=== PATIENT | female | born 1990 | race Caucasian/White ===

== ENCOUNTER 2023-04-17 12:31 | Outpatient (CLI) | payer OTHER, SELFPAY ==
[2023-04-17] VITALS (8 sets, daily range): BP systolic 143–155; BP diastolic 88–96; PULSE 89–98; BMI 40.4
--- NOTE | ~2023-04-17 | US_ITS ---
EXAMINATION: US OB follow up w BPP DATE: 04/17/2023 15:47 INDICATION: -induced hypertension. Third trimester. TECHNIQUE: Real-time pelvic ultrasound was performed. COMPARISON: None. FINDINGS: There is a single living fetus in vertex presentation. The placenta is right fundal. heart rat e is 150 beats per minute (bpm). The amniotic fluid index is 16.3 cm, which is normal. The following biometric data were obtained: Biparietal diameter (BPD): 8.8 cm; head circumference (HC): 31.5 cm; abdominal circumference (AC): 30 .9 cm; femur length (FL): 7.0 cm. These measurements are concordant. Estimated weight is 2636 g +/- 395 g, which correlates with the 34th percentile when 05/16/23 is used as estimated date of delivery. As single measurements, these parameters are each equal to the following estimated gestational ages: BPD: 35 weeks 4 days. HC: 35 weeks 2 days. AC: 34 weeks 6 days. FL: 36 weeks 0 days. estimated gestational age based solely on measurements from this exam is 35 weeks 3 days +/- 2 weeks 3 days. Biophysical profile performed by the technologist: breathing (30 sec sustained breathing in 30 minutes): 2 out of 2 movement (3 gross body movements in 30 minutes): 2 out of 2 tone (one episode of qdlfosd-dsobidafe-rmzosls limb movement): 2 out of 2 Amniotic fluid pocket (2 cm): 2 out of 2 Total score: 8 out of 8 IMPRESSION: 1. Single living fetus in vertex presentation. 2. Estimated weight is 2636 g +/- 395 g, which correlates with the 34th percentile when 05/16/23 is used as estimated date of delivery. 3. Biophysical profile 8 out of 8. Reviewed, dictated and finalized at location A. [employer]
[2023-04-17 13:00] LABS: Basophils Absolute Auto 0.1 K/mm3 (0.0-0.1); Basophils Percent Auto 0.4 % (0.2-1.2); Eosinophils Absolute Auto 0.1 K/mm3 (0-0.3); Eosinophils Percent Auto 0.7 % (0-4.4); Hematocrit 35.5 % (37.0-47.0); Hemoglobin 11.7 g/dL (12.0-15.0); Immature Granulocyte Absolute 0.11 K/mm3 (0.00-0.031); Immature Granulocyte Percent A 0.8 % (0-0.5); Lymphocytes Absolute Auto 1.93 K/mm3 (0.9-3.2); Lymphocytes Percent Auto 13.2 % (18.3-44.2); Mean Corpuscular Hemoglobin 28.7 pg (26-34); Mean Platelet Volume 9.7 fl (7.4-10.4); Monocytes Percent Auto 6.9 % (2.6-8.5); Neutrophils Absolute Auto 11.4 K/mm3 (1.3-6.7); Platelet Count Result 354 k/mm3 (150-375); Red Blood Count 4.08 M/mm3 (4.2-5.4); Red Cell Distribution Width 14.3 % (11.5-14.5); White Blood Count 14.6 K/mm3 (4.5-10.0)
[2023-04-17 13:02] LABS: Appearance Urine Clear (Clear); Color Urine Yellow (Yellow); pH Urine 7.5 (5.0-9.0)
[2023-04-17 13:03] LABS: Glucose Urine UA Negative (Negative); Ketones Urine Negative (Negative); Protein Urine Negative (Negative)
[2023-04-17 13:04] LABS: Add Urine Microscopic? YES; Bilirubin Urine Negative (Negative); Blood Urine Trace-Intact (Negative); Leukocyte Esterase Ur 1+ LEU/UL (Negative); Nitrate Urine Negative (Negative); Urobilinogen Urine 0.2 mg/dL (<2.0)
[2023-04-17 13:09] LABS: Alanine Aminotransferase 16 U/L (6-35); Albumin Level 3.4 g/dL (3.5-5.1); Alkaline Phosphatase 97 U/L (38-126); Anion Gap 7 mmol/L (8-16); Aspartate Amino Transferase 19 U/L (14-36); Bilirubin,Total 0.7 mg/dL (0.2-1.3); Blood Urea Nitrogen 7 mg/dL (7-17); Calcium 9.2 mg/dL (8.4-10.2); Carbon Dioxide 21 mmol/L (22-30); Chloride 107 mmol/L (98-107); Estimated CRCL calculation 138 ml/min; Estimated Glomerular Filt Rate > 60; Glucose 83 mg/dL (65-110); Potassium 4.4 mmol/L (3.4-5.0); Sodium 135 mmol/L (137-145); Uric Acid 3.7 mg/dL (2.5-7.5)
[2023-04-17 13:11] LABS: Creatinine Urine 71.5 mg/dL; Total Protein Urine Random 8 mg/dL; Ur Ttl Prot Creatinine Ratio 0.11 mg/mg (0-0.20)
[2023-04-17 13:15] LABS: RBC Urine 0-2 /hpf (0-2); Squamous Epithelial Cell Urine Few /hpf (Few); WBC Urine 0-5 /hpf
--- NOTE | 2023-04-17 14:33 | PC.NURSE ---
Xochitl PITT updated with labs and blood pressures. Pt awaiting ultrasound. tracing reviewed by the CNM at the office. CNM okay with pt being dc from tracing. CNM will prescribe blood pressure medication to seed cone picker tonight.
--- NOTE | 2023-04-17 16:27 | P.PNOB_ITS ---
OB - Triage/Final Diagnosis Visit Information Date of evaluation: 04/17/23 Reason for evaluation: other (r/p Preeclampsia) Comments/Additional reasons for admission: I have assessed the risk for this patient, Lisbet Eason, and determined that she would benefit from observation care. Evaluation Laboratory results: Laboratory Tests 04/17/23 12:44 WBC 14.6 H RBC 4.08 L Hgb 11.7 L Hct 35.5 L MCV 87.0 MCH 28.7 MCHC 33.0 RDW 14.3 Plt Count 354 MPV 9.7 Immature Gran % (Auto) 0.8 H Neut % (Auto) 78.0 H Lymph % (Auto) 13.2 L [place] % (Auto) 6.9 Eos % (Auto) 0.7 Baso % (Auto) 0.4 Lymph # (Auto) 1.93 [place] # (Auto) 1.0 H Eos # (Auto) 0.1 Baso # (Auto) 0.1 Abs Immat Gran (auto) 0.11 H Absolute Neuts (auto) 11.4 H Absolute Nucleated RBC 0.0 Nucleated RBC % 0.0 Sodium 135 L Potassium 4.4 Chloride 107 Carbon Dioxide 21 L Anion Gap 7 L BUN 7 Creatinine 0.60 L Estim Creat Clear Calc 138 Estimated GFR > 60 Glucose 83 Uric Acid 3.7 Calcium 9.2 Total Bilirubin 0.7 AST 19 ALT 16 Alkaline Phosphatase 97 Total Protein 7.0 Albumin 3.4 L Urine Color Yellow Urine Appearance Clear Urine pH 7.5 Ur Specific [place] 1.020 Urine Protein Negative Urine Glucose (UA) Negative Urine Ketones Negative Ur Blood (Man) Trace-intact Urine Nitrate Negative Urine Bilirubin Negative Urine Urobilinogen 0.2 Leukocyte Esterase Rfl 1+ H Urine RBC 0-2 Urine WBC 0-5 Ur Squamous Epith Cells Few U Random Total Protein 8 Urine Creatinine 71.5 Protein/Creat Ratio 2 0.11 Vital signs: Vital Signs - 24 hr 04/17/23 13:00 04/17/23 13:15 04/17/23 13:30 Pulse Rate 90 98 92 Blood Pressure 150/94 H 153/96 H 155/94 H Blood Pressure [Left Arm] 04/17/23 13:45 04/17/23 14:00 04/17/23 14:15 Pulse Rate 98 92 92 Blood Pressure 143/93 H 146/93 H 149/88 H Blood Pressure [Left Arm] 04/17/23 14:30 04/17/23 15:33 Pulse Rate 95 89 Blood Pressure 151/96 H Blood Pressure [Left Arm] 143/93 H Comments: Tracing reactive, US reassuring. Start Labetalol 100mg BID. BP parameters given. to Check BID. 24 hr urine protein collection.
== END 2023-04-17 16:06 | disposition home or self-care (01) ==
LOC: ANHOBOP 12:39 → ANHOBPP 12:39
PROVIDERS: Advanced Practice Midwife; Visit Provider Obstetrics & Gynecology Gynecology
DX: O13.9 Gestational [pregnancy-induced] hypertension without significant proteinuria, unspecified trimester (principal); Z3A.00 Weeks of gestation of pregnancy not specified
CPT/HCPCS: 36415; 59025; 76816; 76819; 80053; 81001; 82570; 84156; 84550; 85025; 99199

== ENCOUNTER 2023-04-18 18:15 | Outpatient (NON) | payer OTHER, SELFPAY ==
[2023-04-18 19:31] LABS: Collection Time Urine 24 HOURS
[2023-04-18 19:35] LABS: Total Volume 24 Hour Urine 2400 ml
[2023-04-18 19:36] LABS: Patient Weight 236 Lbs
[2023-04-18 19:45] LABS: Creatinine Clearance Urine 177.8 ml/min (75-125); Creatinine Urine 77.4 mg/dL; Total Protein Urine 24 Hr 240 mg/24hr (28-141); Total Protein Urine Random 10 mg/dL
== END 2023-04-18 18:16 | disposition home or self-care (01) ==
LOC: ANHOBOP 18:15
PROVIDERS: Visit Provider Advanced Practice Midwife
DX: O26.899 Other specified pregnancy related conditions, unspecified trimester (principal); R03.0 Elevated blood-pressure reading, without diagnosis of hypertension
CPT/HCPCS: 81050; 82575; 84156

== ENCOUNTER 2023-05-19 05:01 | Inpatient (IN) | payer OTHER, MEDICAID, SELFPAY ==
[2023-05-19] VITALS (116 sets, daily range): BP systolic 108–189; BP diastolic 56–114; PULSE 58–106; RESP 18; TEMP 36.2–36.6; O2SAT 95–100; BMI 41.6
--- NOTE | 2023-05-19 05:27 | LDADM ---
This patient, Lisbet Eason, was admitted to Labor/Delivery/Recovery 104 on 05/19/23 at 05:01. Plans for labor, pain management and were discussed with patient. Patient/family oriented to hospital policies and general routines including ID bracelet, bed and alarms, visiting hours, pain management, procedures, bathroom and other care routines, personal items, smoking policy, room service/diet and guest tray routines, security routines, and visiting hours. Patient/Family are encouraged to report perceived risks to care and to ask questions if they do not understand what they are told or what they should do. See OBIX for further documentation.
[2023-05-19 05:50] LABS: Basophils Absolute Auto 0.1 K/mm3 (0.0-0.1); Basophils Percent Auto 0.6 % (0.2-1.2); Eosinophils Absolute Auto 0.1 K/mm3 (0-0.3); Eosinophils Percent Auto 0.8 % (0-4.4); Hematocrit 33.4 % (37.0-47.0); Hemoglobin 10.9 g/dL (12.0-15.0); Immature Granulocyte Absolute 0.12 K/mm3 (0.00-0.031); Lymphocytes Absolute Auto 2.25 K/mm3 (0.9-3.2); Lymphocytes Percent Auto 18.7 % (18.3-44.2); Mean Corpuscular HGB Conc 32.6 g/dl (32-36); Mean Corpuscular Hemoglobin 28.2 pg (26-34); Mean Corpuscular Volume 86.5 fl (80-100); Mean Platelet Volume 10.3 fl (7.4-10.4); Monocytes Percent Auto 8.4 % (2.6-8.5); Neutrophils Absolute Auto 8.5 K/mm3 (1.3-6.7); Neutrophils Percent Auto 70.5 % (45.5-73.1); Platelet Count Result 348 k/mm3 (150-375); Red Blood Count 3.86 M/mm3 (4.2-5.4); Red Cell Distribution Width 14.6 % (11.5-14.5)
[2023-05-19] MEDS: LACTATED RINGERS 1,000 ML 125 ML IV CONT ×2 (06:01→21:58)
[2023-05-19 06:02] LABS: Alanine Aminotransferase 17 U/L (6-35); Albumin Level 3.4 g/dL (3.5-5.1); Alkaline Phosphatase 122 U/L (38-126); Anion Gap 4 mmol/L (8-16); Aspartate Amino Transferase 24 U/L (14-36); Bilirubin,Total 0.5 mg/dL (0.2-1.3); Blood Urea Nitrogen 10 mg/dL (7-17); Calcium 9.9 mg/dL (8.4-10.2); Carbon Dioxide 20 mmol/L (22-30); Chloride 109 mmol/L (98-107); Estimated CRCL calculation 122 ml/min; Estimated Glomerular Filt Rate > 60; Glucose 93 mg/dL (65-110); Potassium 3.7 mmol/L (3.4-5.0); Sodium 133 mmol/L (137-145)
[2023-05-19] MEDS: AMPICILLIN 2 GM/NS 100 ML 2 GM/100 ML BAG IVPB (06:02)
[2023-05-19] MEDS: miSOPROStol 25 MCG TABLET VAGINAL (06:15)
[2023-05-19] MEDS: LABETALOL HCL 100 MG TABLET PO (07:03)
--- NOTE | 2023-05-19 07:38 | PHAR ---
Home medication identified. Labetalol 100mg tablets. Returned to OB1 nursing station
--- NOTE | 2023-05-19 08:21 | PCCCNOTE ---
Care Coordination: Received consult that patient does not have insurance. This is not a care coordination consult. Spoke with Xochitl at [facility] who plans to meet with mom to determine if she is IPA eligible and will provide financial assistance if needed. She will also apply baby for Medicaid. Left message with RN to inform.
--- NOTE | 2023-05-19 08:23 | WPDOBADMIT ---
Obstetrics - Admit Note Admission Note: record reviewed. No pertinent additions to the history and/or any subsequent changes in the physical findings that are not consistent with the expected course of the were found. Additions to the history and/or subsequent changes in the physical findings follow. None.
--- NOTE | 2023-05-19 08:26 | PM.OBPNLAB ---
Pain Control Date/time seen: 05/19/23 0728 Pain control: tolerating well Comments: Pt resting on left side, trying to sleep. Denies feeling regular ctx. Good movement. No headache, visual changes, RUQ pain, or change in edema. Contractions Monitor mode: External Status status: Category l Assessment and Plan Assessment: induction ongoing Comments: Discussed plan of care. Discussed IOL process and expectations. All questions answered. Dr. Grsos updated.
[2023-05-19] MEDS: AMPICILLIN 1 GM/NS 50 ML 1 GM/50 ML BAG IVPB ×4 (10:02→21:56)
[2023-05-19] MEDS: miSOPROStol 25 MCG TABLET 50 MCG VAGINAL (11:19)
[2023-05-19 14:04] LABS: Rapid Plasma Reagin Non-Reactive (NonReactive)
[2023-05-19] MEDS: LABETALOL HCL INJ 100 MG/20 ML VIAL 20 MG IV PUSH ×2 (15:30→20:22)
[2023-05-19] MEDS: OXYTOCIN 30 UNITS/NS 500 ML 30 UNITS/500 ML BAG IV CONT (15:49)
[2023-05-19 16:08] LABS: Creatinine Urine 66.2 mg/dL; Total Protein Urine Random 18 mg/dL; Ur Ttl Prot Creatinine Ratio 0.27 mg/mg (0-0.20)
--- NOTE | 2023-05-19 16:55 | WPDANESEPP ---
Anes - Eval Pre Procedure Procedure: labor epidural Date/Time: 05/19/23 16:55 Pre Op Diagnosis: IOL Patient Data Age: 33 Gender: F Height: 1.63 m Weight: 110 kg Last Vital Signs Temp 36.2 C L 05/19/23 14:59 Pulse 74 05/19/23 16:46 BP 148/79 H 05/19/23 16:46 Pulse Ox 97 05/19/23 07:03 O2 Del Method Room Air 05/19/23 05:42 Allergies Allergy/AdvReac Type Severity Reaction Status Date / Time No Known Allergies Allergy Verified 05/02/23 12:10 Home Medications Medication Instructions Recorded Confirmed Type vits no.126-ferrous fum 1 tablet PO DAILY 04/17/23 05/02/23 History 28 mg iron-folic acid 800 mcg tablet (Classic ) labetalol 100 mg tablet 100 mg PO Q12H 05/02/23 05/02/23 History Laboratory Tests 05/19/23 05/19/23 05:18 15:52 WBC 12.0 H K/mm3 (4.5-10.0) RBC 3.86 L M/mm3 (4.2-5.4) Hgb 10.9 L g/dL (12.0-15.0) Hct 33.4 L % (37.0-47.0) MCV 86.5 fl (80-100) MCH 28.2 pg (26-34) MCHC 32.6 g/dl (32-36) RDW 14.6 H % (11.5-14.5) Plt Count 348 k/mm3 (150-375) MPV 10.3 fl (7.4-10.4) Immature Gran % (Auto) 1.0 H % (0-0.5) Neut % (Auto) 70.5 % (45.5-73.1) Lymph % (Auto) 18.7 % (18.3-44.2) [place] % (Auto) 8.4 % (2.6-8.5) Eos % (Auto) 0.8 % (0-4.4) Baso % (Auto) 0.6 % (0.2-1.2) Lymph # (Auto) 2.25 K/mm3 (0.9-3.2) [place] # (Auto) 1.0 H K/mm3 (0.1-0.6) Eos # (Auto) 0.1 K/mm3 (0-0.3) Baso # (Auto) 0.1 K/mm3 (0.0-0.1) Abs Immat Gran (auto) 0.12 H K/mm3 (0.00-0.031) Absolute Neuts (auto) 8.5 H K/mm3 (1.3-6.7) Absolute Nucleated RBC 0.0 K/mm3 (0.0-0.012) Nucleated RBC % 0.0 % (0.0-0.2) Sodium 133 L mmol/L (137-145) Potassium 3.7 mmol/L (3.4-5.0) Chloride 109 H mmol/L (98-107) Carbon Dioxide 20 L mmol/L (22-30) Anion Gap 4 L mmol/L (8-16) BUN 10 mg/dL (7-17) Creatinine 0.70 mg/dL (0.7-1.0) Estim Creat Clear Calc 122 ml/min Estimated GFR > 60 (59 - ) Glucose 93 mg/dL (65-110) Calcium 9.9 mg/dL (8.4-10.2) Total Bilirubin 0.5 mg/dL (0.2-1.3) AST 24 U/L (14-36) ALT 17 U/L (6-35) Alkaline Phosphatase 122 U/L (38-126) Total Protein 7.0 g/dL (6.3-8.2) Albumin 3.4 L g/dL (3.5-5.1) U Random Total Protein 18 mg/dL Urine Creatinine 66.2 mg/dL Protein/Creat Ratio 2 0.27 H mg/mg (0-0.20) RPR Non-reactive (NonReactive) Blood Type A Positive Antibody Screen Negative Patient hx anesthesia problems: none Family hx anesthesia problems: none Results Review: All pre-operative results and documents have been reviewed as part of the pre-operative evaluation. [facility] Past Medical History Medical History (Updated 05/19/23 @ 16:55 by Ariane Salmeron CRNA) Gestational hypertension Family History Family History Other Unknown family medical history Social History Social History Smoking status: Never smoker Substance use: never Do You Feel Safe in your Home?: Yes Lack of Transportation: No Lack of Food: Never True Current Housing: I Have Housing Concerned About Future Housing: No Difficulty Paying Gas/Electric Bills: No Difficulty Paying for Meds: No Currently Unemployed: No Education: High School Diploma/GED Difficulty w/ Childcare or Family Care: No Spiritual care concerns: No Exam Day of Procedure 05/19/23 16:55 Patient weight: morbidly obese Heart: regular rate and rhythm Lungs: normal air movement Airway: Mallampati scale Neurological: alert and oriented
--- NOTE | 2023-05-19 18:07 | PM.OBPNLAB ---
Pain Control Date/time seen: 05/19/23 18:00 Pain control: tolerating well Comments: Feeling occasional cramping. Denies regular, painful contractions. Pelvic Exam Dilation (cm): 2 Effacement (%): 70 station: -3 Amniotic membrane status: Intact Comments: head applied to cervix. Contractions Monitor mode: External Contraction frequency: 3 (3-5) Contraction duration: 60 (60-90) Contraction pattern: Irregular Contraction phase: Contraction Contraction intensity: Mild Status status: Category l Assessment and Plan Pitocin rate (mU/min): 4 Assessment: induction ongoing Plan: continuous present management Comments: CNM to bedside. BPs continue to be mild after one dose of IV labetalol. Denies KEMP, visual changes, RUQ pain, or increase in edema. Discussed plan of care an option for amniotomy. Discussed risks, benefits, and expectations of breaking water. Patient is agreeable. Amniotomy performed and there was a small return of clear amniotic fluid. Patient tolerated procedure well. Pitocin decreased to 4 ml/hr. Plan to titrate as needed to achieve adequate contraction pattern. Plan SVE in 2 hours. If no cervical change, recommend IUPC placement. Discussed with pt and her partner and she is agreeable if IUPC indicated. Anticipate vaginal . Dr. Gross updated.
--- NOTE | 2023-05-19 18:12 | PM.OBPRVD ---
OB - Vaginal Delivery Note Procedure Delivery date: 05/20/23 Events: Gestational Hypertension and Preeclampsia w/o severe features (Severe BPs during IOL resulting in Preeclampsia diagnosis) Induction method: Per Misoprostol Protocol Delivery augmentation: Rupture of Membranes Delivery monitor: External FHT, External Uterine and Internal Uterine Route of delivery: Episiotomy description: None Laceration Description: Vaginal (1st degree, hemostatic. Tiffanie-urethral/clitoral with repair) Specimen: Yes Quantitative Blood Loss (ml): 500 Anesthesia type: Epidural Disposition: Floor Complications: No immediate complications Narrative: Grecia arrived for induction of labor secondary to gestational hypertension. during her induction, she had a few instances of severe range blood pressures which resolved with labetalol. Due to this, magnesium sulfate was started for preeclampsia. She made cervical change and progressed to complete dilation. She pushed well with contractions. After bringing the head to compete crown he she delivered gradually over an intact perineum. There was fair restitution after this point. There was easy delivery of the anterior followed by the posterior shoulder. After the delivery of the remainder of the , the infant was placed on the maternal abdomen and care was transferred to the nursery staff. After more than 1 minute of life, the cord was doubly clamped and cut. Cord blood, cord segment, and cord gases were obtained. There was spontaneous delivery of the placenta. The vulva and vaginal tissues were inspected. The first-degree vaginal laceration was found to be hemostatic, however the periurethral/ periclitoral laceration needed repair. Dr. Gross called for repair. See MD note. all delivery counts correct, there was excellent fundal tone and hemostasis. 800 mcg of Cytotec was placed rectally for prevention of uterine atony due to long induction and magnesium sulfate infusion. Baby Date of : 05/20/23 Time of : 17:22 Weeks of gestation at delivery: 39 Infant gender: Female Weight (pounds): 8 Weight (ounces): 7 presentation: vertex position: Right Occiput Anterior Placenta delivery description: Spontaneous and Normal Configuration Cord Vessel Description: 3 Vessels and Delayed Cord Clamping score one minute: 8 score five minutes: 9
[2023-05-19] MEDS: MAGNESIUM SULF 4 GM/WATER100ML 4 GM/100 ML BAG IVPB (21:48)
[2023-05-19] MEDS: MAGNESIUM SULF 20GM/WATER500ML 500 ML 50 MG IV CONT (22:26)
[2023-05-20] VITALS (321 sets, daily range): BP systolic 106–184; BP diastolic 60–118; PULSE 57–260; RESP 17–20; TEMP 36.2–37.2; O2SAT 94–100
[2023-05-20] MEDS: AMPICILLIN 1 GM/NS 50 ML 1 GM/50 ML BAG IVPB ×4 (01:59→14:23)
[2023-05-20] MEDS: CALCIUM CARBONATE (TUMS) 500 MG (200 MG ELEMENTAL) 400 MG PO (05:29)
[2023-05-20] MEDS: OXYTOCIN 30 UNITS/NS 500 ML 30 UNITS/500 ML BAG 6 UNITS IV CONT (06:04)
[2023-05-20] MEDS: SODIUM CHLORIDE 0.9% IV 300 ML 600 ML I-UTERINE (08:13)
[2023-05-20] MEDS: MAGNESIUM SULF 20GM/WATER500ML 500 ML 50 MG IV CONT ×2 (08:13→18:16)
--- NOTE | 2023-05-20 08:19 | P.PNOB_ITS ---
Pain Control Date/time seen: 05/20/23 0730 Pain control: tolerating well and epidural Pelvic Exam Dilation (cm): 5 Effacement (%): 90 station: -2 Amniotic membrane status: Ruptured Contractions Monitor mode: Internal Contraction pattern: Irregular Contraction phase: Contraction Contraction intensity: Mild Status status: Category l Assessment and Plan Pitocin rate (mU/min): 14 Assessment: induction ongoing Comments: CNM at bedside from approximately 0730 until 0805. IUPC and ctx evaluated. Copious amount of amniotic fluid on the sheet and carline pad. No strong ctx palpated. IUPC tracing minimal, irregular contractions. Pt having left sided lower back spasm. Assisted RN in repositioning to side lying with leg supported and then on hands and knees with upper body supported on Cub chair. Lower back and left gluteal area massaged and pt reported relief. Assisted her in repos itioning to supine momentarily. IUPC replaced. Then repositioned to left runners position. Plan bolus amount of amnioinfusion in hopes of allowing fetus to rotate. Plan to increase pitocin as needed to achieve adequate contraction pattern. Dr. Gross updated.
[2023-05-20] MEDS: OXYTOCIN 30 UNITS/NS 500 ML 30 UNITS/500 ML BAG IV CONT (09:39)
[2023-05-20] MEDS: PROPRANOLOL HCL 20 MG TABLET PO (09:39)
--- NOTE | 2023-05-20 14:08 | PM.OBPNLAB ---
Pain Control Date/time seen: 05/20/23 0500 phone call Assessment and Plan Comments: CNM received phone call from RN. Pitocin on 30 ml/hr last few hours. Cervix 5cm. Ctx not adequate. OK for pitocin break for one hour. Will restart pitocin at that time at 6ml/hr and increase by 6 ml/hr 30 min later. Afterwards will titrate by 2 ml/hr as needed to achieve adequate contraction pattern.
[2023-05-20] MEDS: LACTATED RINGERS 1,000 ML 125 ML IV CONT (14:24)
[2023-05-20] MEDS: OXYTOCIN 30 UNITS/NS 500 ML 30 UNITS/500 ML BAG 125 UNITS IV CONT (17:43)
[2023-05-20] MEDS: miSOPROStol 200 MCG TABLET 800 MCG RECTAL (17:48)
--- NOTE | 2023-05-20 18:12 | WPDPROCEDUR ---
Procedures Laceration Laceration 2: Site: vulva/vagina Description: linear, irregular and other (gaping) Depth: involves muscle layer Anesthesia technique: nerve block (epidural in place) Pre-repair: deep structures intact Skin layer closed with: vicryl (3-0 for deep layers; 4-0 for skin) Size (cm): 6-0 Technique: running (2 layers) Subcutaneous layer closed with: vicryl Technique: running Muscle layer closed with: vicryl s/p vaginal delivery-see Xochitl Vo note vaginal/vulvar laceration supraurethral and inner labia down to upper vaginal sulcus right side 6 cm x6 cm gaping incision with bulging muscle to clitoral beltran muscle left side 3 cm x 3 cm each side repaired independently in 2 layers urethra not involved, mills in place on my arrival
--- NOTE | 2023-05-20 18:29 | PM.OBDSVD ---
DS: Admitting Diagnosis Discharge Date 05/22/23 Admitting Diagnosis 33 y.o.G1Po gHTN advancing to Preeclampsia Rubella Non-Immune DS: Discharge Diagnosis Discharge Diagnosis (1) (normal spontaneous vaginal delivery): Code(s): O80 - Encounter for full-term uncomplicated delivery Status: Acute (2) Preeclampsia: Qualifiers: Trimester: third trimester Qualified Code(s): O14.93 - Unspecified pre-eclampsia, third trimester Code(s): O14.90 - Unspecified pre-eclampsia, unspecified trimester Status: Acute (3) Mother currently breast-feeding: Code(s): Z39.1 - Encounter for care and examination of lactating mother Status: Acute OB - DS: Summary Hospital Course Hospital Course: Uncomplicated OB Procedures : Ultrasound OB Procedures Intrapartum: Spontaneous Vag Delivery and GBS prophylaxis OB Procedures: : Rubella lg Peripartum Data Delivery Method: Natural Vaginal Laceration Description: Periurethral (johnny-clitoral) and Vaginal (1st degree, hemostatic. Johnny-urethral/clitoral with repair) Episiotomy description: None complications: none Status at Discharge Functional status at discharge: independent ambulation Overall status at discharge: patient is progressing back to baseline Time Spent with Patient Time attestation: Total time spent providing and/or coordinating discharge services: Exam Narrative: Alert and oriented. Mood is pleasant and cooperative. Perineum with minimal edema. Fundus firm and below umbilicus. Const: General: cooperative, healthy appearing, no acute distress and alert Orientation/consciousness: patient oriented x3 Limitations: no limitations Resp: Effort & Inspection: normal respiratory effort and able to speak in complete sentences Auscultation: clear to auscultation bilaterally Cardio: Rate: regular rate GI: Inspection: normal to inspection Auscultation: normal bowel sounds : General: Yes bladder normal to palpation External Female Exam: other (lochia WNL) Bimanual exam- vagina & uterus: bladder normal to palpation Other: Fundus firm and below U Skin: General skin exam: normal color and no rashes or lesions noted Neuro: General: patient oriented x3 and moves all extremities Cognition (Neuro): normal cognition Extrem: General: normal to inspection and no calf tenderness Psych: Appearance: grossly normal Mental Status: mental status grossly normal Affect: normal affect Thought process: Normal thought process present Discharge Plan Discharge Attending physician on discharge: Dipti Gross Discharging Clinician: Xochitl Vo Anticipated Discharge Date/Time: 05/22/23 22:00 Patient Disposition: Home, Self-Care Activity: may shower and pelvic rest Diet: as tolerated and regular Wound Care Instructions: follow printed instructions Discharge Instructions: Continue taking your vitamin and any other supplements as previously directed (Examples: Iron, Vitamin D). You may take Tylenol 1000mg over the counter every 6 hours as needed for pain. Do not exceed 4000mg of Tylenol daily. You may continue using tucks pads and Dermoplast spray if needed for a few more days. Depression Notify provider for signs or symptoms. These may include- Feelings: Feeling anxious, angry, hopeless, guilt, or loss of interest/pleasure in activities you normally enjoy. Mood swings or panic attacks. General: Extreme fatigue, loss of your appetite, feeling restless. Crying excessively, irritability, insomnia Psychological: Lack of concentration, depression or fear, unwanted thoughts Weight: Significant gain or loss Safety: Thoughts of harming yourself or your baby. Blood Pressure Instructions Check your BP at home daily. Keep a log and bring to your next visit. Report any BP readings over 16
--- NOTE | 2023-05-20 18:36 | PM.OBPNLAB ---
Pain Control Date/time seen: 05/19/232129 Assessment and Plan Comments: Discussed recent BP readings with Dr. Gross. Plan to start pitocin due to severe range BPs. Called L&D RN, mag orders given.
[2023-05-20] MEDS: IBUPROFEN 600 MG TABLET PO (19:50)
[2023-05-20] MEDS: LABETALOL HCL 100 MG TABLET PO (20:40)
--- NOTE | 2023-05-20 21:03 | OBPPTRN ---
Patient transferred to post room #283 via wheelchair. Support person Joe present. Oriented to unit, room, information board, rooming in, admission packet and security measures. Patient verbalizes understanding.
[2023-05-21] VITALS (9 sets, daily range): BP systolic 131–150; BP diastolic 73–100; PULSE 80–100; RESP 16–18; TEMP 36.5–37; O2SAT 96–99
--- NOTE | 2023-05-21 00:15 | PC.NURSE ---
Assisted patient with pumping at this time due to baby having blood sugar of 45 mg/dL and needing formula supplementation. Patient pumped for 15 minutes with no output, encouraged patient this is normal and consistent pumping every 2-3 hr is recommended for milk production especially if not putting baby to breast. Patient stated she doesn't wish to pump anymore at this time.
[2023-05-21] MEDS: LABETALOL HCL 100 MG TABLET PO ×2 (02:21→09:10)
--- NOTE | 2023-05-21 02:49 | PC.NURSE ---
Baby girl Jenaro with a blood sugar of 57, mom stated since baby has a blood sugar, can I wait to feed educated patient that since it has been 4 hours since last feed that it is important to try to put baby to breast. Patient stated that she just wants to give a bottle for this feed because baby doesn't seem interested in the breast. Patient was educated on importance of pumping or putting baby to breast if the future plan is to breastfeed. Patient stated After I feed this bottle I will think about pumping . Encouraged patient to call out for help if assistance is needed.
[2023-05-21] MEDS: LACTATED RINGERS 1,000 ML 75 ML IV CONT (03:28)
[2023-05-21] MEDS: MAGNESIUM SULF 20GM/WATER500ML 500 ML 50 MG IV CONT ×2 (03:28→13:47)
[2023-05-21 04:13] LABS: Hemoglobin 9.9 g/dL (12.0-15.0)
[2023-05-21] MEDS: IBUPROFEN 600 MG TABLET PO ×2 (04:15→15:47)
--- NOTE | 2023-05-21 07:01 | P.PNOB_ITS ---
OB - PN: Subj Subjective Date/time seen: 05/21/23 0635 Interval history: Doing well. Cline in place. Denies KEMP, visual changes, or RUQ pain. Denies passing any large clots. Denies dizziness. Not out of bed yet. Tolerating po food and fluids. Bonding with . Patient comments: pain well controlled baby status: doing well feeding status: breast and bottle feeding OB - PN: Obj Data Labs 05/21/23 03:40 05/19/23 05:18 Labs: Laboratory Results - last 24 hr 05/21/23 03:40 Hgb 9.9 L Hct 29.0 L OB - PN A/P Plan day: 1 Plan: routine care Time Spent With Patient Time: Total time spent is greater than 50% in coordination of care (as documented) at patient's floor/unit and/or counseling patient: Review of Systems Review of Systems: All systems reviewed & are unremarkable except as noted in HPI and below Exam Narrative: Alert and oriented. Mood is pleasant and cooperative. Perineum with minimal edema. Fundus firm and below umbilicus. Const: General: cooperative, healthy appearing, no acute distress and alert Orientation/consciousness: patient oriented x3 Limitations: no limitations Resp: Effort & Inspection: normal respiratory effort and able to speak in complete sentences Auscultation: clear to auscultation bilaterally Cardio: Rate: regular rate GI: Inspection: normal to inspection Auscultation: normal bowel sounds : General: Yes bladder normal to palpation External Female Exam: other (lochia WNL. mod edema) Other: Fundus firm and below U. Cline in place Urinary Catheter: Urinary Catheter: patent and draining Skin: General skin exam: normal color and no rashes or lesions noted Neuro: General: patient oriented x3 and moves all extremities Cognition (Ne uro): normal cognition Extrem: General: normal to inspection and no calf tenderness Psych: Appearance: grossly normal Mental Status: mental status grossly normal Affect: normal affect Thought process: Normal thought process present
[2023-05-21] MEDS: MULTIVIT/MIN/PREN/FOL AC/IRON TABLET 1 TAB PO (09:10)
[2023-05-21] MEDS: DOCUSATE SODIUM 100 MG CAPSULE PO ×2 (09:10→16:56)
[2023-05-21] MEDS: POLYSACCHARIDE IRON COMPLEX 150 MG CAPSULE PO ×2 (09:10→16:56)
--- NOTE | 2023-05-21 10:49 | WPDANLDPN2 ---
Anes-Prog Note L&D Date/Time: 05/21/23 10:49 Neuro status: Neuro function grossly intact. Cardiovascular status: normal Respiratory status: normal Airway patency: baseline Mental status: baseline Post-Op hydration status: normal Vital Signs: Last Vital Signs Temp 36.5 C 05/21/23 07:40 Pulse 81 05/21/23 09:10 Resp 18 05/21/23 07:40 BP 146/95 H 05/21/23 07:40 Pulse Ox 98 05/21/23 07:40 O2 Del Method Room Air 05/21/23 07:35 Pain score (VAS): 0 I/O: Intake & Output 05/20/23 05/21/23 05/21/23 23:59 07:59 15:59 Intake Total 1000 Output Total 1490 2100 250 Balance -490 2100 250 Post-procedural complaints: none Patient feedback: Patient satisfied with anesthetic care.
--- NOTE | 2023-05-21 13:31 | PC.NURSE ---
[id number] Encouraged stimulating to check for feeding cues, change the diaper if needed, to call for blood sugar after infant is [id number], and offer the breast when feeding cues are visualized. Instructed patient to call if she has difficulty waking infant, latching infant, pain with latching, no swallowing visualized, and needs assistance. Parents voiced understanding of the information.
--- NOTE | 2023-05-21 13:34 | PC.NURSE ---
Late entry - [id number] Introductions were made, then consulted with patient to assess needs related to . Mother led the conversation with her?plans to feed?her , the?experience so far, and has infant latched to the right breast with football positioning. Infants mouth is 90 degrees, mother denies pain, is swallowing at times with lowering of the jaw and the ka sound, infants cheek is not well rounded. Infant was detached due to non-nutritive sucking and nipple was misshaped. Mother works well with her . Reviewed positioning and ear, shoulder, hip alignment, supporting the breast to facilitate a deep latch, asymmetrical latch (off-center), leading with the chin with a big, open, wide gape and body close to mother. latched optimally to the left breast in football position. Education given to the mother of how to visualize the suckling (with good rocking jaw motion), swallows (dropping of the lower jaw) and how to listen for drinking at the breast (the ka sound). was able to maintain latch without pain to mother protecting the nipple with optimal positioning and latching. Infant effectively for a few minutes, then latch is assessed at less than 90 degrees. is detached with nipple misshaping. Reviewed comfort measures of healing with a warm, wet washcloth to rinse breast, then leave open to air-dry, good handwashing when or touching the breast/nipples to prevent infection. Mother voiced understanding of skin to skin, stimulating with massage touch, responsive feedings, hand expressed colostrum, talking to infant to encourage if it has been 2 -2.5 hours since the start of the last , to call if does not latch, or if there is discomfort with . Resources used for education were facilitated with the visual educational handouts/ tool/mom and baby guide. Inpatient/outpatient resources provided with name written on the communication board. Parents voiced understanding of information and was instructed to call for assistance with the next session. Reported to the Primary RN.
[2023-05-21] MEDS: SODIUM CHLORIDE 0.9% IV 100 ML 75 ML (17:00)
[2023-05-22] VITALS (7 sets, daily range): BP systolic 136–147; BP diastolic 68–83; PULSE 70–80; RESP 16–18; TEMP 36.7–36.9; O2SAT 99–100
--- NOTE | 2023-05-22 06:45 | P.PNOB_ITS ---
OB - PN: Subj Subjective Date/time seen: 05/22/23 06:45 Interval history: Doing well. Urinating without difficulty. Denies passing any large clots. Denies dizziness with ambulating. Tolerating po food and fluids. Bonding with infant. No KEMP, visual changes, or RUQ pain. Patient comments: no complaints baby status: doing well (IV fluids infusing) [place] feeding status: breast and bottle feeding OB - PN: Obj Data Labs 05/21/23 03:40 05/19/23 05:18 OB - PN A/P Assessment and Plan (1) Mother currently breast-feeding: Code(s): Z39.1 - Encounter for care and examination of lactating mother Status: Acute Assessment and Plan: Discussed pumping, hand expression, and infant latch in great detail. Discussed method and frequency of hand expression. Pt asking for assistance. CNM provided assistance with hand expression and colostrum expressed. (2) (normal spontaneous vaginal delivery): Code(s): O80 - Encounter for full-term uncomplicated delivery Status: Acute (3) Preeclampsia: Qualifiers: Trimester: third trimester Qualified Code(s): O14.93 - Unspecified pre- eclampsia, third trimester Code(s): O14.90 - Unspecified pre-eclampsia, unspecified trimester Status: Acute Assessment and Plan: BPs normal to mild range Plan day: 2 Plan: discharge home (to no care bed if infant not discharged. ) Time Spent With Patient Time: Total time spent is greater than 50% in coordination of care (as documented) at patient's floor/unit and/or counseling patient: Review of Systems Review of Systems: All systems reviewed & are unremarkable except as noted in HPI and below Exam Narrative: Alert and oriented. Mood is pleasant and cooperative. Perineum with minimal edema. Fundus firm and below umbilicus. Const: General: cooperative, healthy appearing, no acute distress and alert Orientation/consciousness: patient oriented x3 Limitations: no limitations Resp: Effort & Inspection: normal respiratory effort and able to speak in complete sentences Auscultation: clear to auscultation bilaterally Cardio: Rate: regular rate GI: Inspection: normal to inspection Auscultation: normal bowel sounds : General: Yes bladder normal to palpation External Female Exam: other (lochia WNL) Bimanual exam- vagina & uterus: bladder normal to palpation Other: Fundus firm and below U Skin: General skin exam: normal color and no rashes or lesions noted Neuro: General: patient oriented x3 and moves all extremities Cognition (Neuro): normal cognition Extrem: General: normal to inspection and no calf tenderness Psych: Appearance: grossly normal Mental Status: mental status grossly normal Affect: normal affect Thought process: Normal thought process present
[2023-05-22] MEDS: DOCUSATE SODIUM 100 MG CAPSULE PO ×2 (07:57→16:42)
[2023-05-22] MEDS: MEASLES,MUMPS,RUBELLA VACCINE 0.5 ML VIAL SUB-Q (07:58)
[2023-05-22] MEDS: IBUPROFEN 600 MG TABLET PO (07:58)
[2023-05-22] MEDS: MULTIVIT/MIN/PREN/FOL AC/IRON TABLET 1 TAB PO (08:00)
[2023-05-22] MEDS: POLYSACCHARIDE IRON COMPLEX 150 MG CAPSULE PO ×2 (08:00→16:41)
[2023-05-22] MEDS: LABETALOL HCL 100 MG TABLET PO ×2 (10:34)
--- NOTE | 2023-05-22 13:06 | PC.NURSE ---
[id number] Purposefully rounded to assess for needs. Mother shared that the last feeding she made a decision to only supplement with a formula bottle. We reviewed ways to protect the milk supply with hand expression, manual and electric pumping removing milk efficiently when receives a bottle. Explained the supply and demand along with what to expect with the milk production over the next few days. Reviewed positioning and ear, shoulder, hip alignment, supporting the breast to facilitate a deep latch, asymmetrical latch (off-center), leading with the chin with a big, open, wide gape and body close to mother. Watching for good rocking jaw motion, swallows (dropping of the lower jaw) and how to listen for drinking at the breast (the ka sound). Mother shared that she is not visualizing swallowing at the breast. Mother encouraged to call for assistance for a latch assessment. Reviewed comfort measures of healing with a warm, wet washcloth to rinse breast, then leave open to air-dry, good handwashing when or touching the breast/nipples to prevent infection. Mother is [id number] with her infant at this time and is not demonstrating feeding cues. Mother doesn't want to hand express at this time and plans to call for a blood sugar check for her infant at 1300. Mother voiced understanding of skin to skin, stimulating with massage touch, responsive feedings, hand expressed colostrum, talking to to encourage if it has been 2 -2.5 hours since the start of the last , to call if does not latch, or if there is discomfort with . Inpatient/outpatient resources provided with feeding sheet, name written on the communication board remains, and the mom/baby guide. Parents voiced understanding of information and will call if there is a request for assistance.
--- NOTE | 2023-05-22 17:40 | PC.NURSE ---
Patient viewed the discharge video Mother & Baby Care, The First Two Weeks . Patient was given the opportunity and encouraged to ask questions. Patient verbalized understanding of information shared and has been given the mother/baby guide for home reference.
[2023-05-24 12:14] VITALS: BP 130/84; PULSE 82; RESP 18; TEMP 36.6; O2SAT 99
== END 2023-05-22 17:40 | disposition home or self-care (01) | DRG 768 ==
LOC: ANHLDR 05-20 18:34 → ANHOB2 05-20 21:13
PROVIDERS: Advanced Practice Midwife; Admitting Provider Obstetrics & Gynecology Gynecology; Visit Provider Obstetrics & Gynecology Gynecology
DX: O14.94 Unspecified pre-eclampsia, complicating childbirth (principal); Z37.0 Single live birth; Z3A.39 39 weeks gestation of pregnancy; O70.0 First degree perineal laceration during delivery; O71.82 Other specified trauma to perineum and vulva
CPT/HCPCS: 36415; 80053; 82570; 84156; 85014; 85018; 85025; 86592; 86850; 86900; 86901; 88307; 90710; A9270; J0290; J2590; J3475; J7030; J7120

== ENCOUNTER 2024-12-14 12:20 | Outpatient (CLI) | payer MEDICAID, SELFPAY ==
--- NOTE | ~2024-12-14 | US_ITS ---
EXAMINATION: US OB /maternal detail DATE: 12/14/2024 14:31 INDICATION: Anatomy TECHNIQUE: Multiple obstetric sonographic images performed. FINDINGS: There is a single living fetus in variable presentation . The placenta is anterior without placenta previa. MVP measures 3.91 cm. cardiac activity and movement is noted with a heart rate of 138 beats per minute. The following anatomy was identified as normal: 4 chamber heart is suboptimally visualized. 3 vessel cord cord insertion kidneys are suboptimally visualized. Urinary bladder stomach spine diaphragm ventricles cisterna magna cerebellum Nose/lips, LVOT, RVOT is not visualized. 4 chamber heart is suboptimally visualized. Kidneys are suboptimally visualized. The following biometric data were obtained: BPD: 4.34cm corresponds to gestational age 19 weeks 1 days. Head circumference: 17.81 cm corresponds to gestational age 20 weeks 2 days. Abdominal circumference: 15.5 to cm corresponds to gestational age 20 weeks 5 days. Femur length: 3.35 cm corresponds to gestational age 20 weeks 3 days. Head circumference to abdominal circumference ratio: 1.15 (normal range for expected gestational age is 1.07-1.25). Estimated weight: 358.54 grams +/- 53.78 grams using Hadlock method. Placenta the cervix measures 1.5 cm. Placenta is low-lying. Cervical length measures 3.2 cm. IMPRESSION: 1: Single living intrauterine with an estimated gestational age of 20 weeks 1days by current ultrasound measurements 2. Nose/lips, LVOT, RVOT is not visualized. 4 chamber heart is suboptimally visualized. Kidneys are suboptimally visualized. A short-term follow-up OB ultrasound is recommended. 3. Placenta the cervix measures 1.5 cm. Placenta is low-lying. A short-term follow-up OB ultrasound is recommended. Reviewed, dictated and finalized at location Q. IMPRESSION: 1: Single living intrauterine with an estimated gestational age of 20 weeks 1days by current ultrasound measurements 2. Nose/lips, LVOT, RVOT is not visualized. 4 chamber heart is suboptimally vis ualized. Kidneys are suboptimally visualized. A short-term follow-up OB ultraso und is recommended. 3. Placenta the cervix measures 1.5 cm. Placenta is low-lying. A short-term fol low-up OB ultrasound is recommended.
--- OUTSIDE RECORDS SUMMARY | 2024-12-14 12:24 | XMS_ITS | Clinical Summary ---
Author Organization [facility] Address [address] [place] [id number] Care Team Providers Care Electronic Service Technician Name Role Phone Jacek Abebe MD Primary Care Provider [phone] Allergies No known active allergies Medications HYDROcodone-acet aminophen (NORCO) 5-325 MG tabletIndication s:Acute Pain < 7 Day Supply Take 1 tablet by mouth every 6 (six) hours as needed. Indications : Acute Pain < 7 Day Supply 10 tablet 01/01/2024 Active Social History Tobacco Use Types Packs/Day Years Used Date Smoking Tobacco: Never Smokeless Tobacco: Never Tobacco Cessation:Counseling Given: Not Answered Alcohol Use Standard Drinks/Week Comments Not Currently 0 (1 standard drink = 0.6 oz pur e alcohol) Comments Unknown Sex and Gender Information Value Date Recorded Sex Assigned at Not on file Legal Sex Female 4:04 PM CDT Gender Identity Not on file Sexual Orientation Not on file Last Filed Vital Signs Vital Sign Reading Time Taken Comments Blood Pressure 123/90 01/01/2024 12:32 AM CDT Pulse 115 01/01/2024 12:32 AM CDT Temperature 36.3 C (97.4 F) 01/01/2024 12:32 AM CDT Respiratory Rate 18 01/01/2024 12:32 AM CDT Oxygen Saturation 100% 01/01/2024 12:32 AM CDT Inhaled Oxygen Concentration - - Weight 99.8 kg (220 lb) 01/01/2024 12:32 AM CDT Height 162.6 cm (5' 4) 01/01/2024 12:32 AM CDT Body Mass Index 37.76 01/01/2024 12:32 AM CDT Plan of Treatment Health Maintenance Due Date Last Done Comments Cervical Cancer Screening Pa p Smear (Age 30 to 64) Every 3 Years 1992 Annual Physical 1995 Hepatitis C 2010 Hepatitis B Vaccines (1 of 3 - 19+ 3-dose series) 2011 Cervical Cancer Screening Pa p with HPV Testing (Age 30 to 64) Every 5 Years 2022 Cervical Cancer Screening wi th HPV 2022 COVID-19 Vaccine (3 - 2024-2 6 season) 2024 07/07/2020, 06/16/2020 DTaP, Tdap and Td Vaccines ( 3 - Td or Tdap) 08/21/2026 08/21/2016, 09/23/2006, 09/01/1997 HPV Vaccines Completed 09/26/2008, 12/23/2007, 09/16/2007 Meningococcal B Vaccine Aged Out No l onger eligible based on patient's age to complete this topic Meningococcal Vaccine Aged Out No ariel archie eligible based on patient's age to complete this topic Pneumococcal Vaccine: Pediatrics (0 to 5 Years) and At-Risk Patients (6 to 49 Years) Aged Out No longer eligible b ased on patient's age to complete this topic RSV Immunizations Under 20 Months Aged Out No longer eligible b ased on patient's age to complete this topic Insurance MEDICAID Member Subscriber Plan / Payer (Ef fective 2023-Present) Name:Lisbet Eason Relation to Subscriber:Self Name:Lisbet Eason Payer ID:Not on file Group ID:Not on file Type:Not on file Address: [address] Care Teams Electronic Service Technician Relationship Specialty Start Date End Date Jacek Abebe MD PCP - General 02/25/12
== END 2024-12-14 12:21 | disposition home or self-care (01) ==
PROVIDERS: Visit Provider Obstetrics & Gynecology Gynecology
DX: Z36.9 Encounter for antenatal screening, unspecified (principal)
CPT/HCPCS: 76805

== ENCOUNTER 2025-01-13 11:16 | Outpatient (CLI) | payer MEDICAID, SELFPAY ==
--- NOTE | ~2025-01-13 | US_ITS ---
PROCEDURE(S): OB ultrasound for anatomy follow-up COMPARISON(S): December 14 TECHNIQUE: Grayscale scanning was performed. M-mode and color Doppler FINDINGS: There is a single live intrauterine gestation. Estimated Gestational Age, (according to the first ultrasound available for this gestation): 24 weeks, 3 days. Location: Intrauterine Growth parameters show interval appropriate growth. FHR: 138/minute, which is within normal limits. SANG, based on (the earliest available ultrasound): April 1623 EFW: 662 g The nose and lips are seen on the current study. A four-chamber heart is seen, as are the outflow tracts. Placenta: Anterior and with its inferior tip 2.1 cm from the cervical os. This has increased from 1.5 cm on the prior study. Umbilical Cord/Vessels: The umbilical cord within normal limits. There is a 3- vessel cord. Cervical Length: 5.2 cm. Other findings: Transverse lie. IMPRESSION: Single live intrauterine gestation as described. The structures which were not well seen previously are seen currently and are within normal limits. The inferior tip of the placenta is now 2.1 cm from the cervical os, previously 1.5 cm. Reviewed, dictated and finalized at location A. IMPRESSION: Single live intrauterine gestation as described. The structures whi ch were not well seen previously are seen currently and are within normal limit s. The inferior tip of the placenta is now 2.1 cm from the cervical os, previou sly 1.5 cm.
== END 2025-01-13 11:17 | disposition home or self-care (01) ==
LOC: MICIMG 11:17
PROVIDERS: PCP Obstetrics & Gynecology Gynecology; Visit Provider Obstetrics & Gynecology Gynecology
DX: Z36.2 Encounter for other antenatal screening follow-up (principal); O44.42 Low lying placenta NOS or without hemorrhage, second trimester; Z3A.00 Weeks of gestation of pregnancy not specified
CPT/HCPCS: 76816

== ENCOUNTER 2025-02-22 11:11 | Outpatient (CLI) | payer OTHER, SELFPAY ==
[2025-02-22] VITALS (7 sets, daily range): BP systolic 136–146; BP diastolic 73–86; PULSE 101–110; BMI 42.3
[2025-02-22 12:03] LABS: Hematocrit 33.1 % (37.0-47.0); Hemoglobin 11.0 g/dL (12.0-15.0); Immature Granulocyte Percent A 0.7 % (0-0.5); Lymphocytes Absolute Auto 2.07 K/mm3 (0.9-3.2); Mean Corpuscular HGB Conc 33.2 g/dl (32-36); Mean Corpuscular Hemoglobin 28.0 pg (26-34); Mean Corpuscular Volume 84.2 fl (80-100); Nucleated Red Blood Cells Absolute Auto 0.000 K/mm3 (0.0-0.012); Nucleated Red Blood Cells Perc 0.0 % (0.0-0.2); Platelet Count Result 335 k/mm3 (150-375); Red Blood Count 3.93 M/mm3 (4.2-5.4); White Blood Count 10.4 K/mm3 (4.5-10.0)
[2025-02-22 12:10] LABS: Add Urine Microscopic? YES; Appearance Urine Cloudy (Clear); Glucose Urine UA Negative (Negative); Leukocyte Esterase Ur 3+ LEU/UL (Negative); Nitrate Urine Negative (Negative); Non Pathogenic Casts 0-2; Specific Grav Ur 1.018 (1.001-1.035)
[2025-02-22 12:26] LABS: Total Protein Urine Random 18 mg/dL; Ur Ttl Prot Creatinine Ratio 0.15 mg/mg (0-0.20)
[2025-02-22 12:41] LABS: Alanine Aminotransferase 20 U/L (6-35); Albumin Level 3.4 g/dL (3.5-5.1); Alkaline Phosphatase 71 U/L (38-126); Anion Gap 4 mmol/L (4-12); Aspartate Amino Transferase 22 U/L (14-36); Bilirubin,Total 0.4 mg/dL (0.2-1.3); Blood Urea Nitrogen 6 mg/dL (7-17); Calcium 8.9 mg/dL (8.4-10.2); Carbon Dioxide 19 mmol/L (22-30); Chloride 108 mmol/L (98-107); Estimated Glomerular Filt Rate > 60; Glucose 134 mg/dL (65-110); Potassium 3.6 mmol/L (3.4-5.0); Sodium 131 mmol/L (137-145); Total Protein 6.7 g/dL (6.3-8.2); Uric Acid 3.2 mg/dL (2.5-7.5)
--- NOTE | 2025-02-22 13:19 | PC.NURSE ---
Called MD at 1243. Reported pt presented to labor and delivery from the office for a PIH workup. BPs elevated but not in severe range. PIH labs WNL. Reported tracing. Orders recieved for the patient to dishcarge home and do a 24 hour urine. Discharge education provided. Pt receptive and verbalized understanding. All questions answered. No needs at this time. Pt discharged by private vehicle with personal belongings.
== END 2025-02-22 13:24 | disposition home or self-care (01) ==
LOC: ANHOBOP 11:18 → ANHLDR 11:22
PROVIDERS: Visit Provider Obstetrics & Gynecology
DX: O16.9 Unspecified maternal hypertension, unspecified trimester (principal); Z3A.00 Weeks of gestation of pregnancy not specified
CPT/HCPCS: 36415; 59025; 80053; 81001; 82570; 84156; 84550; 85025; 99199

== ENCOUNTER 2025-02-25 11:53 | Outpatient (CLI) | payer OTHER, SELFPAY ==
[2025-02-25 12:05] VITALS: BMI 42.3
[2025-02-25 13:54] LABS: Total Protein Urine Random 13 mg/dL
[2025-02-25 15:34] LABS: Creatinine 24 Hour Urine 1.8 gm/24 (0.8-1.8); Total Protein Urine 24 Hr 234 mg/24hr (28-141); Total Volume 24 Hour Urine 1800 ml
== END 2025-02-25 11:54 | disposition home or self-care (01) ==
LOC: ANHOBOP 12:02
PROVIDERS: Visit Provider Obstetrics & Gynecology Gynecology
DX: O13.9 Gestational [pregnancy-induced] hypertension without significant proteinuria, unspecified trimester (principal); Z3A.00 Weeks of gestation of pregnancy not specified
CPT/HCPCS: 81050; 82570; 84156

== ENCOUNTER 2025-03-02 14:24 | Outpatient (CLI) | payer OTHER, SELFPAY ==
--- NOTE | ~2025-03-02 | US_ITS ---
EXAM/PROCEDURE: US OB follow up HISTORY: [facility] COMPARISON: None available. TECHNIQUE: Evaluation of placental position FINDINGS: A single viable intrauterine gestation is present with heart rate of 141 bpm Presentation: Vertex Placenta: Somewhat difficult to visualize due to positioning of the humeral head and maternal bladder not filled. Anterior with the inferior tip approximately 7.1 cm removed from the internal os. MARCIAL: 14.71 cm x 4 quadrant technique. EGA by dates and ultrasound 31 weeks 2 days and 31 weeks 6 days EDC by dates and ultrasound fibers 16 and temperature 12 2025 Growth ratios within normal limits. IMPRESSION: 1. Single viable intrauterine gestation with concordant dates and heart rate of 141 bpm. 2. Anterior placenta with the inferior tip appearing to be increased in removal or distance from the internal os. See also comments above. Reviewed, dictated and finalized at location [facility]. [facility]
--- OUTSIDE RECORDS SUMMARY | 2025-03-02 17:19 | XMS_ITS | Clinical Summary ---
Author Organization [facility] Address [address] [place] [address] Care Team Providers Care Chemical Process Project Engineer Name Role Phone Jacek Abebe MD Primary Care Provider [phone]- [phone] Allergies No known active allergies Medications HYDROcodone-acet [...] - 2024-2 6 season) 2024 07/07/2020, 06/16/2020 Influenza Adult (#1) 2024 12/13/2009 DTaP, Tdap and Td Vaccines ( 3 - Td or Tdap) 08/21/2026 08/21/2016, 09/23/2006, 09/01/1997 HPV Vaccines Completed 09/26/2008, 12/23/2007, 09/16/2007 Hepatitis A Vaccines Aged Out No long er eligible based on patient's age to complete this topic Meningococcal B Vaccine Aged Out No l [...] age to complete this topic Insurance MEDICAID [facility] Care Teams Chemical Process Project Engineer Relationship Specialty Start Date End Date Jacek Abebe MD PCP - General 02/25/12
--- OUTSIDE RECORDS SUMMARY | 2025-03-02 17:19 | XMS_ITS | Data Portability ---
Author Organization JAMIE Tila LIZAMA Address [address] [place] [address] Care Team Providers Care Manager [employer] Name Role Phone JACEK GREER Primary Care Provider Unavaila ble Assessment No assessment recorded. Plan of Treatment Reminders Order Date Submit Date Provider Last Modified By Organization Details Last Modified Time Details Appointments None recorded. Lab microorga nism identific ation, unspecifi ed specimen 2023 024 [facility], [address] [place] [address], [address], [place], [address], 4 16:14:36 culture, wound - left labia majora abscess 2023 024 [facility], [address] [place] [address], [address], [place], [address], 4 16:13:36 Pap smear tests - FPAR 2.0 set 2021 022 [facility], [facility], [address], [place], [address], 2 16:12:15 vaginal pathogens panel, SIMON+probe , vaginal fluid 2021 022 [facility], [address] [place] [address], [address], [place], [address], 2 16:09:29 Referral physical therapy back referral - Please contact patient to schedule. Thank you 2019 020 [facility], [address], [place], [address], 0 15:35:25 Procedures incision and drainage, abscess (PROC) 2023 024 [email or web address] Not available 4 09:38:43 Surgeries None recorded. Imaging XR, lumbosacr al spine, 2 or 3 view 2019 020 [facility] ([facility]), [address] [place], [address], 0 11:21:31 Medication Orders tramadol 50 mg tablet 2023 024 [facility] #[id number], [address], [place], [place], [id number], 4 11:59:45 mupirocin 2 % topical ointment 2023 024 [facility] #[id number], [address], [place], [place], [id number], 4 11:54:04 Bactrim DS 800 mg-160 mg tablet 2023 024 [facility] #[id number], [address], [place], [place], [id number], 4 11:54:05 cephalexi n 500 mg capsule 2023 024 [facility] #70925, [address] [place], [place], [id number], 4 11:23:00 Medrol (Fabrice) 4 mg tablets in a dose pack 2020 021 [facility] #23512, [address], [place], [id number], 2 11:46:50 fluticaso ne propionat e 50 mcg/actua tion nasal spray,mikaela pension 2020 021 [facility] #45379, [address], [place], [id number], 4 11:43:15 cyclobenz aprine 10 mg tablet 2019 [facility] #93514, [address], [place], [id number], 1 14:30:11 Medrol (Fabrice) 4 mg tablets in a dose pack 2019 [facility] #04066, [address], [place], [id number], 2 11:46:50 Patient TargetsNo targets recorded. Patient Instructions Encounter Date Encounter Id Patient Instructions Last Modified By Organization Details Last Modified Time 10/24/2020 [id number] temporomandibula r disorder: care instructions [email or web address] Not available 10/24/2020 14:50:08 06/07/2021 [id number] A healthy lifest yle: care instructions [email or web address] Not available 06/07/2021 13:12:56 Reason for Referral Please contact patient to leatha perales. Thank you Referring Physician: Mague Watt, Family Medicine, Encounter Date: 10/27/2019 Results Created Date Observation Date Name Description Value Unit Range Abnormal Flag Note LastModifiedBy Organization Detail LastModifiedTime 06/08/19 22 06/08/2021 ABIODUN Fermin VAGIN ITIS PLUS (VG+) atopobium vaginae Low - 0 score Not Available [facility] ([facility]) [address] [facility], [place], [address], 06/09/2021 16:09:29 06/08/19 22 06/08/2021 NUSWA B VAGIN ITIS PLUS (VG+) bvab 2 Low - 0 score Not Available [facility] ([facility]) [address] [place], [address], 06/09/2021 16:09:29 06/08/19 22 06/08/2021 NUSWA B VAGIN ITIS PLUS (VG+) megasphaera 1 Low - 0 score Calcu late total score by paulina g the 3 indiv idual bacte rial vagin osis (BV) marke r score s toget her. Total score is inter prete d as follo ws: Total score 0-1: Indic ates the absen ce of BV. Total score 2: Indet ermin ate for BV. Addit ional clini heriberto data shoul d be evalu ated to estab leonardo a diagn osis. Total score 3-6: Indic ates the prese nce of BV. This test was devel oped and its perfo rmanc e sierra cteri stics deter mined by [facility]. It has not been clear ed or appro cheryl by the Food and Drug Admin istra tion. Not Available [facility] ([facility]) [address] [place], [address], 06/09/2021 16:09:29 06/08/19 22 06/08/2021 NUA B VAGIN ITIS PLUS (VG+) glenna albicans, SIMON Negati ve negati ve Not Available [facility] ([facility]) [address] [place], [address], 06/09/2021 16:09:29 06/08/19 22 06/08/2021 NUA B VAGIN ITIS PLUS (VG+) glenna glabrata, SIMON Negati ve negati ve Not Available [facility] ([facility]) [address] [place], [address], 06/09/2021 16:09:29 06/08/19 22 06/09/2021 NUA B VAGIN ITIS PLUS (VG+) trich vag by SIMON Negati ve negati ve Not Available [facility] ([facility]) [address] [place], [address], 06/09/2021 16:09:29 06/08/19 22 06/09/2021 NUSWA B VAGIN ITIS PLUS (VG+) chlamydia trachomatis, SIMON Negati ve negati ve Not Available [facility] ([facility]) [address] [facility], [place], [address], 06/09/2021 16:09:29 06/08/19 22 06/09/2021 NUSWA B VAGIN ITIS PLUS (VG+) neisseria gonorrhoeae, SIMON Negati ve negati ve Not Available [facility] ([facility]) [address] [facility], [place], [address], 06/09/2021 16:09:29 06/08/19 22 06/11/2021 IGP, APTIM A HPV HPV aptima Negati ve negati ve This nucle ic acid ampli ficat ion test detec ts fourt een high- risk HPV types (16,1 8,31, 33,35 ,39,4 5,51, 52,56 ,58,5 9,66, 68) witho ut diffe renti ation . Not Available [facility] ([facility]) [address] [facility], [place], [address], 06/13/2021 16:12:15 06/08/19 22 06/13/2021 IGP, APTIM A HPV diagnosis: Commen t NEGAT OSIRIS FOR INTRA EPITH ELIAL LESIO N OR MALIG COLEEN . CELLU SHIRLEY CASTELLANOS ES ASSOC IATED WITH INFLA MMATI ON ARE PRESE NT. THIS SPECI MEN WAS RESCR EENED PART OF OUR QUALI TY CONTR OL PROGR AM. Not Available [facility] ([facility]) [address] [facility], [place], [address], 06/13/2021 16:12:15 06/08/19 22 06/13/2021 IGP, APTIM A HPV specimen adequacy: Armida stoddard Satis facto ry for evalu ation . No endoc ervic al compo nent is ident ified . Areas of parti ally obscu ring infla mmato ry exuda te are prese nt. Not Available [facility] ([facility]) [address] [place], [address], 06/13/2021 16:12:15 06/08/19 22 06/13/2021 IGP, APTIM A HPV clinician provided ICD10: Armida stoddard Z01.4 19 Not Available [facility] ([facility]) [address] [place], [address], 06/13/2021 16:12:15 06/08/19 22 06/13/2021 IGP, APTIM A HPV performed by: Armida walters, Cytot echno logis t (ASCP ) Not Available [facility] ([facility]) [address] [place], [address], 06/13/2021 16:12:15 06/08/19 22 06/13/2021 IGP, APTIM A HPV QC reviewed by: Armida corral, Super visor y Cytot echno logis t (ASCP ) Not Available [facility] ([facility]) [address] [place], [address], 06/13/2021 16:12:15 06/08/19 22 06/13/2021 IGP, APTIM A HPV . . Not Available [facility] ([facility]) [address] [place], [address], 06/13/2021 16:12:15 06/08/19 22 06/13/2021 IGP, APTIM A HPV note: Armida stoddard The Pap smear is a scree poppy test desig shawn to aid in the detec tion of naomi ligna nt and malig nant condi tions of the uteri ne cervi x. It is not a diagn ostic proce dure and shoul d not be used as the sole means of detec ting cervi heriberto cance r. Both false -posi tive and false -nega tive repor ts do occur . Not Available [facility] ([facility]) [address] [place], [address], 06/13/2021 16:12:15 06/08/19 22 06/13/2021 IGP, APTIM A HPV test methodology: TNP The Thin Prep( R) Image r was unabl e to read this speci men. There fore a manua l revie w was perfo rmed. Not Available [facility] ([facility]) [address] [place], [address], 06/13/2021 16:12:15 06/16/19 24 06/19/2023 ANAER OBIC AND AEROB IC CULTU RE aerobic culture Final report Not Available [facility] ([facility]) [address] [facility], [place], [address], 06/20/2023 16:13:36 06/16/19 24 06/19/2023 ANAER OBIC AND AEROB IC CULTU RE result 1 Commen t Mixed bacte rial julieth . Not Available [facility] ([facility]) [address] [place], [address], 06/20/2023 16:13:36 06/16/19 24 06/20/2023 ANAER OBIC AND AEROB IC CULTU RE anaerobic culture Final report abnormal Not Available [facility] ([facility]) [address] [place], [address], 06/20/2023 16:13:36 06/16/19 24 06/20/2023 ANAER OBIC AND AEROB IC CULTU RE result 1 Commen t abnormal Pepto strep tococ cus anaer obius Heavy growt h Not Available [facility] ([facility]) [address] [place], [address], 06/20/2023 16:13:36 06/16/19 24 06/20/2023 ANAER OBIC AND AEROB IC CULTU RE result 2 Prevot kim specie s abnormal Heavy growt h Studi es at [facility] Holdi ngs have confi rmed the obser vatio ns of other s who have demon strat ed that Prevo tella , Porph yromo anastasiya and Bacte roide s speci es other than Bacte roide s fragi lis group are routi jerica susce ptibl e to Cefox itin, Chlor amphe matthew , and Metro nidaz ole and are usual ly resis tant to Penic illin . Not Available [facility] ([facility]) [address] [facility], [place], [address], 06/20/2023 16:13:36 01/05/20 24 01/08/2024 AEROB IC BACTE RIAL CULTU RE aerobic bacterial culture FINAL REPORT abnormal Not Available [facility] ([facility]) [address] [facility], [place], [address], 01/08/2024 16:14:36 01/05/20 24 01/08/2024 AEROB IC BACTE RIAL CULTU RE result 1 STAPHY LOCOCC US AUREUS abnormal Based on susce ptibi lity to oxaci llin this isola te would be susce ptibl e to: *Peni cilli nase- stabl e penic illin s, such as: Cloxa cilli n, Diclo xacil alex, Nafci llin *Beta -lact am combi natio n agent s, such as: Amoxi cilli n-cla vulan ic acid, Ampic illin -sulb actam , Piper acill in-ta zobac sexton *Oral cephe ms, such as: Cefac valeriano, Cefdi janeth, Cefpo doxim e, Cefpr ozil, Cefur oxime , Cepha lexin , Lorac arbef *Pare ntera l cephe ms, such as: Cefaz jose juan, Cefep michael, Cefot axime , Cefot margaret, Cefta rolin e, Cefti zoxim e, Ceftr iaxon e, Cefur oxime *Carb apene ms, such as: Dorip enem, Ertap enem, Imipe nem, Merop enem Moder ate growt h Not Available [facility] ([facility]) [address] [facility], [place], [address], 01/08/2024 16:14:36 01/05/20 24 01/08/2024 AEROB IC BACTE RIAL CULTU RE antimicrobia l susceptibili ty COMMEN T S = Susce ptibl e; I = Inter media te; R = Resis tant P = Posit osiris; N = Negat osiris MICS are expre ssed in micro grams per mL Antib iotic RSLT# 1 RSLT# 2 RSLT# 3 RSLT# 4 Cipro floxa linda S Clind amyci n S Eryth romyc in R Genta micin S Levof loxac in S Linez olid S Moxif loxac in S Oxaci llin S Penic illin R Quinu prist in/Da lfopr istin S Rifam pin S Tetra cycli ne S Trime thopr im/Rankin lfa S Vanco mycin S Not Available [facility] ([facility]) [address] [facility], [place], [address], 01/08/2024 16:14:36 10/28/19 20 10/27/2019 XR, lumbo sacra l spine , 2 or 3 view No observ ation record ed. [facility] [address], [place], [address], 10/29/2019 15:29:41 Result Notes None recorded. Problems Name Problem SNOMED Code Status Onset Date Resolution Date Notes Provider Name and Address Organization Details Recorded Time Disorder of hair AND/OR hair follicle Completed 201207/27/2012 Location : None;Sev erity: Moderate ;Progres s: Stable;A dded By: Buzz Greer;Add to Current Problems : NO Not Available [facility] 7 11:38:06 Psychoge deangelo headache 61364566 Completed 201210/09/2012 Location : None;Sev erity: Moderate ;Progres s: Stable;A dded By: Nano Orlando; Add to Current Problems : NO Not Available [facility] 7 11:39:01 Migraine with aura 3409244 Active 2013 Location : None;Sev erity: Moderate ;Progres s: Stable;A dded By: Buzz Greer;Add to Current Problems : NO Not Available [facility] 7 11:38:06 Single major depressi ve episode, mild Completed 201306/21/2013 Location : None;Sev erity: Moderate ;Progres s: Stable;A dded By: Hortencia Savage;Add to Current Problems : NO Not Available [facility] 7 11:39:01 Lymphade nopathy 85287702 Completed 201406/26/2014 Location : None;Sev erity: Moderate ;Progres s: Stable;A dded By: Anayeli Rosenthal;Add to Current Problems : YES Not Available [facility] 7 11:39:01 Headache 88812531 Completed 201407/25/2014 Location : None;Sev erity: Moderate ;Progres s: Stable;A dded By: Anayeli Rosenthal;Add to Current Problems : NO Not Available [facility] 7 11:39:01 Infectio us diarrhea l disease 51117120 Completed 201409/27/2014 Location : None;Sev erity: Moderate ;Progres s: Stable;A dded By: Buzz Greer;Add to Current Problems : YES Not Available [facility] 7 11:39:00 Generali zed abdomina l pain 804242699 Completed 201408/29/2014 Location : None;Sev erity: Moderate ;Progres s: Stable;A dded By: Bertha Bautista i;Ronen dd to Current Problems : YES Not Available [facility] 7 11:39:01 Problem Notes None recorded. Procedures Surgical History Date Name Laterality Status Provider Name and Address Organization Details Recorded Time 4 I&D completed BREANN Bradshaw Attn: Accounting,[address], [place], [address], [facility] 06/16/2023 16:25:27 Unlisted px foot/toes completed Gracie Henry MA [place] - [facility] 05/16/2016 11:15:18 Imaging Results None recorded. Procedure Notes None recorded. Medical Equipment None Reported. Allergies No known drug allergies Medications Name Sig Start Date Stop Date Status Note LastModified by Organization Details LastModified Time cyclobenza ludmila 10 mg tablet TK 1 T PO TID FOR 10 DAYS PRN 10/24 completed Not Available Not Available Not Available amoxicilli n 500 mg capsule 08/21 completed Not Available Not Available Not Available triamcinol one acetonide 0.5 % topical cream Apply thin film to affected area bid <2 weeks. 08/04 completed RxNorm : 651761 ;Allow Substi tution : True Not Available Not Available Not Available cetirizine 10 mg tablet Take 1 tablet every day by oral route. 10/24 completed Not Available Not Available Not Available ibuprofen 800 mg tablet Take 1 -2 tabs po daily prn 05/21 completed RxNorm : 320071 ;Allow Substi tution : True Not Available Not Available Not Available tizanidine 4 mg tablet active Not Available Not Available Not Available hydrocodon e 5 mg-acetami nophen 325 mg tablet TAKE 1 TABLET BY MOUTH EVERY 6 HOURS NEEDED FOR ACUTE PAIN active Not Available Not Available No t Available meloxicam 15 mg tablet active Not Available Not Available Not Available metronidaz ole 0.75 % (37.5 mg/5 gram) vaginal gel Insert 1 applicato rful every day by vaginal route for 5 days. 08/13 completed Not Available Not Available Not Available sulfametho xazole 800 mg-trimeth oprim 160 mg tablet TAKE 1 TABLET BY MOUTH EVERY 12 HOURS FOR 10 DAYS active Not Available Not Available No t Available tramadol 50 mg tablet TAKE 1 TABLET BY MOUTH EVERY 6 TO 8 HOURS NEEDED FOR SEVERE PAIN active Not Available Not Available No t Available cefadroxil 500 mg capsule Take 1 capsule(s ) by mouth q12h for 10 days 08/04 completed RxNorm : 051616 ;Allow Substi tution : True Not Available Not Available Not Available amoxicilli n 875 mg tablet Take 1 tab by mouth every 12hrs x 7 days 07/25 completed RxNorm : 094475 ;Allow Substi tution : True Not Available Not Available Not Available Lamisil 250 mg tablet Take 1 tablet every day by oral route. 06/02 completed Not Available Not Available Not Available amitriptyl ine 10 mg tablet Take 1 tablet(s) by mouth at bedtime 05/21 completed RxNorm : 983122 ;Allow Substi tution : True Not Available Not Available Not Available cephalexin 500 mg capsule TAKE 1 CAPSULE BY MOUTH EVERY 8 HOURS FOR 7 DAYS FOR SKIN INFECTION 01/04 completed Not Available Not Available Not Available ranitidine 150 mg tablet Take 1 tab twice daily 12/26 completed RxNorm : 313356 ;Allow Substi tution : True Not Available Not Available Not Available sertraline 25 mg tablet Take 1 tablet(s) by mouth daily 06/11 completed RxNorm : 463808 ;Allow Substi tution : True Not Available Not Available Not Available mupirocin 2 % topical ointment APPLY EXTERNALL Y A SMALL AMOUNT TO THE NOSTIRLS TWICE DAILY FOR 2-3 WEEKS active Not Available Not Available No t Available methylpred nisolone 4 mg tablets in a dose pack FOLLOW PACKAGE DIRECTION S 06/07 completed Not Available Not Available Not Available labetalol 100 mg tablet TAKE 1 TABLET BY MOUTH EVERY 12 HOURS 01/04 completed Not Available Not Available Not Available Vitamin D2 1,250 mcg (50,000 unit) capsule Take 1 capsule weekly x 8 weeks 05/26 completed Allow Substi tution : True Not Available Not Available Not Available Naprosyn 500 mg tablet take one tablet twice a day as needed 05/26 completed RxNorm : 647195 ;Allow Substi tution : True Not Available Not Available Not Available ketoconazo le 2 % topical cream APPLY TO THE left clavicle and between breasts BY TOPICAL ROUTE ONCE DAILY 06/02 completed Not Available Not Available Not Available fluticason e propionate 50 mcg/actuat ion nasal spray,susp ension SHAKE LIQUID AND USE 2 SPRAYS IN EACH NOSTRIL EVERY DAY 06/15 completed Not Available Not Available Not Available sertraline 50 mg tablet Take 1 tablet(s) by mouth daily 05/26 completed dose increa se;RxN orm: 897546 ;Allow Substi tution : True Not Available Not Available Not Available Isibloom 0.15 mg-0.03 mg tablet TAKE 1 TABLET BY MOUTH EVERY DAY 04/24 completed Not Available Not Available Not Available Vitals Date Recorded Body height Body mass index (BMI) Body weight Body temperature Oxygen saturation Heart rate Systolic And Diastolic Provider Name and Address Organization Details Last Updated DateTime 2 162.56 cm 36.4 kg/m2 92644.9 3 g 97.3 [degF] 97 % 79 /min 126/84 mm[Hg] Shonda Gandhi MA [facility] 2 11:46:22 Date Recorded Body weight Body mass index (BMI) Body height Body temperature Oxygen saturation Heart rate Systolic And Diastolic Provider Name and Address Organization Details Last Updated DateTime 4 25981.7 7 g 36.7 kg/m2 162.56 cm 97.8 [degF] 99 % 97 /min 128/84 mm[Hg] Kalyani Call MA [facility] 4 11:42:35 Date Recorded Body weight Body height Body mass index (BMI) Body temperature Oxygen saturation Heart rate Systolic And Diastolic Provider Name and Address Organization Details Last Updated DateTime 1 41264.9 5 g 162.56 cm 37.1 kg/m2 96.9 [degF] 98 % 74 /min 125/81 mm[Hg] Kalyani Call MA [facility] 1 14:29:55 Date Recorded Body height Body mass index (BMI) Body weight Body temperature Oxygen saturation Heart rate Systolic And Diastolic Provider Name and Address Organization Details Last Updated DateTime 4 162.56 cm 35.9 kg/m2 26209.9 1 g 98.6 [degF] 96 % 81 /min 116/80 mm[Hg] Lyric White MA [facility] 4 11:26:34 Social History Question Answer Notes LastModified by Organizat ion Details LastModified Time Tobacco Smoking Status Current Every Day Smoker Kalyani Call MA null, [facility] 10/24/2020 14:32:34 Do You Have An Advance Directive? No Information not available 06/07/2021 Are You Blind Or Do You Have Difficulty Seeing? No Information not available 06/07/2021 What Is Your Level Of Caffeine Consumption? Occasional Information not available 10/24/2020 Are You Deaf Or Do You Have Serious Difficulty Hearing? No Information not available 06/07/2021 What Type Of Diet Are You Following? REGULAR Information not available 06/07/2021 What Was The Date Of Your Most Recent Tobacco Screening? 01/05/2024 [email or web address] Information not available 01/05/2024 What Is Your Current Pack Years? 10packyears Information not available 10/24/2020 What Is Your Relationship Status? Single Information not available 06/07/2021 Do You Use Your Seat Belt Or Car Seat Routinely? Yes Information not available 06/07/2021 Do You Have Smoke And Carbon Monoxide Detectors In Your Home? Yes Information not available 06/07/2021 At What Age Did You Start Smoking Tobacco? 27 Information not available 10/24/2020 Are You Passively Exposed To Smoke? Yes Information no t available 06/07/2021 How Much Tobacco Do You Smoke? 1 PPW Information not available 10/24/2020 Has Tobacco Cessation Counseling Been Provided? No Information not available 10/24/2020 How Many Years Have You Smoked Tobacco? 3 Information not available 10/24/2020 Sex: Female Functional Status Question Answer Note LastModified by Organizat ion Details LastModified Time Do you use any illicit or recreational drugs? No Information not available 10/24/2020 What is your level of alcohol consumption? Occasional Information not available 10/24/2020 Are you currently employed? Yes Information not available 06/07/2021 Are you able to care for yourself independently? Yes Information not available 06/07/2021 What is your exercise level? Heavy Information not available 06/07/2021 Mental Status Question Answer Note LastModified by Organization D etails LastModified Time Do you feel stressed (tense, restless, nervous, or anxious, or unable to sleep at night)? [id number] Information not available 06/07/2021 Family History Relationship Description Onset Age of this Age Resolved Age Notes LastModified by Organization Details LastModified Time Father Diabetes mellitus [email or web address] Not available 2016 11:12:55 Paternal Grandfather Hypertensive disorder [email or web address] Not available 13:58:35 Mother Environmenta l allergy [email or web address] Not available 13:58:43 Medical History Condition Response Headaches Y Depression Y Gynecological History Statement/Question Response Menses Monthly Y Date of LMP 05/25/2021 LMP Definite On BCP's at Conception? N Obstetrics History GPAL:G 0 P 0 0 0 0 Immunizations Vaccine Type Date Status Note Provider Nam e and Address Organization Details Recorded Time COVID-19, mRNA, LNP-S, PF, 30 mcg/0.3 mL dose 1 completed PATRICK Ry[place], [place] - [facility] 10/24/2020 14:30:41 COVID-19, mRNA, LNP-S, PF, 30 mcg/0.3 mL dose 1 completed PATRICK [place], [place] [facility] 10/24/2020 14:31:03 MMR 4 completed BREANN Bradshaw Attn: Accounting,[address] [facility], [place], [address], [place] [facility] 06/16/2023 11:46:01 Tdap 7 completed Not Available [facility] 04/03/2019 02:44:12 HPV, quadrivalent 9 completed Not Available [facility] 03/20/2016 05:18:20 MMR 8 completed Not Available [facility] 03/20/2016 05:18:20 influenza, seasonal, intradermal, preservative free 0 completed Not Available [facility] 03/20/2016 05:18:20 Td (adult), 2 Lf tetanus toxoid, preservative free, adsorbed 7 completed Not Available [facility] 03/20/2016 05:18:20 HPV, quadrivalent 8 completed Not Available [facility] 03/20/2016 05:18:20 TST-PPD intradermal 8 completed Not Available [facility] 03/20/2016 05:18:20 DT (pediatric) 8 completed Not Available [facility] 04/17/2019 02:11:37 HPV, quadrivalent 8 completed Not Available [facility] 03/20/2016 05:18:20 Past Encounters Encounter ID Performer Location Encounter Start Date Encounter Closed Date Diagnosis/Indication Diagnosis SNOMED-CT Code Diagnosis ICD10 Code Diagnosis IMO Codes Diagnosis Note [id number] Jacek Greer MD [facility] [address] [place] [address] 05/16/2016 10:49:10 05/17/2016 10:58:55 Dysmenorrhea [id number] N94.6 Screening for malignant neoplasm of cervix [id number] Z12.4 [id number] Jacek Greer MD [facility] [address] [place] [address] 08/21/2016 16:09:38 08/21/2016 17:08:17 Cellulitis [id number] L03.90 change to polysporin . May use benaryl or cortaid cream . Administra tion of diphtheria, pertussis, and tetanus vaccine [id number] Z23 [id number] Jacek Greer MD [facility] [address] [place] [address] 08/28/2016 10:21:44 08/28/2016 15:37:15 Tinea corporis [id number] B35.4 baby powder BID, stay as cool and dry as possible, no work through Saturday 09/02 [id number] Jacek Greer MD [facility] [address] [place] [address] 05/05/2017 10:55:23 05/08/2017 15:32:58 Contraception care [id number] Z30.40 Screening for malignant neoplasm of cervix 300278173 Z12.4 Human elvi lloma virus infection [id number] B97.7 [id number] Gloria Juárez MD [facility] [address] [place] [address] 06/24/2017 09:45:37 06/25/2017 17:19:46 History and physical examination, pre-employment [id number] Z02.1 see form, released no restrictio ns, UTD on immunizati ons. [id number] Cydney Turk MD [facility] [address] [place] [address] 06/02/2018 09:35:26 06/03/2018 09:10:00 Surveillance of oral contraception 306722023 Z30.41 Gynecologi c examination 82763966 Z01.411 Adult heal th examination 358422752 Z00.00 [id number] Cydney Turk MD [facility] [address] [place] [address] 08/13/2018 15:31:27 08/13/2018 16:26:52 Abscess of skin and/or subcutaneous tissue [id number] L02.91 if not better within 5 days, may have to I/D [id number] Cydney Turk MD [facility] [address] [place] [address] 08/18/2018 14:23:42 08/18/2018 16:25:06 Abscess of skin and/or subcutaneous tissue 73545918 L02.91 much better, we will do 7 more days of ABT if completely healed, no need for follow up [id number] Cydney Turk MD [facility] [address] [place] [address] 09/28/2019 14:17:13 09/28/2019 16:19:55 Viral syndrome [id number] B34.9 advised, to call [facility] COVID line .Reviewe d the following recommenda tions: -Stay home and separate from others as much as possible. -Monitor your symptoms and seek medical attention for trouble breathing, persistent chest pain, confusion, or bluish lips or face. -Wear a mask if you must be around other people. -Wash your hands often for 20 seconds with soap and water and clean high-touch surfaces daily Sinusitis [id number] J32.9 [id number] JOLIE Acosta NP [facility] [address] [place] [address] 09/29/2019 09:17:37 09/30/2019 07:32:01 Viral syndrome [id number] B34.9 [id number] Cydney Turk MD [facility] [address] [facility] [address] [place] [address] 10/27/2019 10:22:12 10/27/2019 13:25:13 Acute low back pain [id number] M54.5 [id number] Cydney Turk MD [place] [address] [place] [address] 10/24/2020 14:04:29 10/24/2020 17:37:19 Temporomandibular rvtmq-zcbg-wczrhzojxh n syndrome 408575446 M26.629 if not improving, RTC for further eval Serous otitis media 8032 7007 H65.90 [id number] Cydney Turk MD [facility] [address] [place] [address] 06/07/2021 11:32:04 06/07/2021 14:20:49 Gynecologic examination 94331626 Z01.419 Adult heal th examination 661852483 Z00.00 Overweight 794666743 E66 .3 [id number] Cydney Turk MD [facility] [address] [place] [address] 06/16/2023 11:14:36 06/16/2023 17:32:53 Abscess of skin and/or subcutaneous tissue 22820359 L02.91 -I/D in office today, pt tolerated well-Recom mend washing with antibacter ial soap and warm water three times daily-Warm compresses a few times a day to help drain extra discharge- Will send for culture and start Keflex- follow up if no improvemen t [id number] Cydney Turk MD [facility] [address] [place] [address] 01/05/2024 10:44:34 01/05/2024 15:28:21 Abscess of nose 8527096 J34.0 bilateral, right ruptured, left remains. Continue heat applicatio n. Await culture results. Acute sciatica 571897153 M54.30 Went to ER, given lidocaine shots, morphine, flexeril. Send home with mobic, tizanidine and hydrocodon e #10, has 2 left, taking BID. Is seeing chiropract or, but taking a break for a minute. I offered PT says she can't afford, she is going to look into massage therapy with a friend. Will transition off of the HC and onto tramadol short term as needed. Will take either IBU or meloxican not both. Can add tylenol back in when off of the HC. Health Concerns Section Related Observation LastModified by Organization Detai ls LastModified Time None Recorded Concern Status LastModified by Organization Details LastModified Time None Recorded Advance Directives Directive N: Payers Insurance Date Sequence Insurance Name Policy Number Policy Reeves Covered Member ID Reeves Member ID Guarantor Name 06/16/2023 2 [employer] [facility] [id number] Lisbet Platt Yanet [id number] Lisbet Platt Jenaro 01/05/2024 1 [facility] (HMO) [id number] Lisbet Platt Jenaro [id number] Lisbet Platt Jenaro 06/16/2023 1 [facility] [id number] Lisbet Platt Yanet [id number] Lisbet Platt Jenaro 06/16/2023 1 [employer] (SECONDARY SUPPLEMENT) [id number] Lisbet Platt Yanet [id number] Lisbet Platt Jenaro 06/16/2023 1 [employer] (PPO) Lisbet Platt Yanet [id number] Lisbet Platt Jenaro 01/05/2024 SLIDING FEE SCHEDULE - DISCOUNT Lisbet Platt Jenaro 08/28/2021 2 *SELF PAY* Samia mckenzieronen Platt Jenaro 06/02/2018 1 [facility] [id number] Florencio Holt [id number] 1 Lisbet Eason 01/05/2024 1 [place] [facility] Lisbet Holt [id number] Lisbet Eason Notes Date Note Type Note Provider Name and Address Organization Details Recorded Time 0 text/html Back PainReported by PatientHPIFor quality, patient reportssharp,tingling, anddull. For severity, patient reportsworsening. For aggravating factors, patient reportsmovement/position ing,twisting,flexing back, andextending back. For associated symptoms, patient reportsweak limbsandshortness of breath (with some movements)but reportsno fever,no numbness of the legs/feet,no tingling, andno incontinence(weakness in limbs with certain movements). For duration, patient reportsacute. For onset/timing, patient reports1.5weeks ago(increased in last 3 days). For context, patient reportsprior back problems(unknown, chiropractor states rib was out of place and did and adjustment she felt better but she still has pain in lower back that has gotten worse).[facility], L 3 and L 4 issues. and sciatic issues. Woke up Friday morning in horrible pain. cannot bend over without painHas been taking Aleve and excedrin for pain with no relief. All low back pain meds not helping, chiropractics not helping, does not recall doing anything to backROS as noted in the HPI DIANA Hurley Attn: Accounting,[address] [facility], [place], [address], [facility] 10/27/2019 11:13:05 1 text/html EaracheReported by PatientHPIFor location, patient reportsrightandpain inside ear. For modifying factors, patient reportshurts to lie on, or pull on earbut reportsdoes not hurt to chew. For quality, patient reportsthrobbing (pulsing)(jaw pain as well). For severity, patient reportscontinuous (pain but intermittent throbbing)andmoderate. For duration, patient reportsfrequent. For timing, patient reportsgradual(present since friday 2days). For context, patient reportsno sick contacts,no recent swimming/water in ear,no exposure to second hand smoke,no head trauma,not grinding teeth, andno recent air travel. For associated symptoms, patient reportsno discharge from the ears,no hearing loss,no nose/sinus problems,no popping noise in the ears, andno ringing in the ears.described as a dull, unilateral facial ache that is constant but waxes and wanes in intensity. The pain radiates to the ear, temporal at the angle of the mandible. When present, it is aggravated by jaw motion. Pressure in the earROS as noted in the HPI Went over medication with pt pt states that she doesnt need any refills on todays visit. DIANA Hurley Attn: Accounting,[address] [place], [address], [facility] 10/24/2020 15:02:18 2 text/html ROS as noted in the HPI patient is here for annual and pap BREANN Bradshaw Attn: Accounting,[address] [facility], [place], [address], [facility] 06/07/2021 13:13:51 4 text/html Rash/Skin LesionReported by PatientHPIFor quality, patient reportspainful,red,singl e,swollen, andincreasing in sizebut reportsnot itchy,not bleeding,stable, andgetting epic ambulatory specialists. For location, patient reportsgenitalia. For severity, patient reportssevere. For onset/timing, patient reportsgradual onset. For context, patient reportsno new detergents or skin products,no one else with similar rash, andnot scratching(pt states that she thinks she has ingrown hair follicle or abscess on the vaginal area.). For alleviating factors, patient reportsnothing gives relief. For aggravating factors, patient reportsnothing makes it worse. For associated symptoms, patient reportsno fever,no cold symptoms,no nausea,no vomiting,no diarrhea,no urinary symptoms,no chills,no fatigue, andno change in weight. For treatment history, patient reportsno history of treatment. For duration, (present 2-3 days). Pt here for 3 days of painful abscess to left labia majora. Has been able to express very minimal drainage. Symptoms have gotten worse since they first began. 1 month post . BREANN Bradshaw Attn: Accounting,[address] [facility], [place], [address], [facility] 06/16/2023 16:26:31 4 text/html Generic HPI TemplateReported by PatientNo fevers, right nare with zit that popped, the one on the left getting larger, very hard and very sore.ROS as noted in the HPI left side of face swollen mostly in and on the nose, pt was in the Er for back pain on for sciatica. BREANN Nielsen Attn: Accounting,[address] [facility], [place], [address], [facility] 01/05/2024 12:09:56 OBGyn Episode No OBEpisode recorded.
== END 2025-03-02 14:25 | disposition home or self-care (01) ==
PROVIDERS: Visit Provider Obstetrics & Gynecology Gynecology
DX: O44.40 Low lying placenta NOS or without hemorrhage, unspecified trimester (principal); Z3A.00 Weeks of gestation of pregnancy not specified
CPT/HCPCS: 76816